=== PATIENT | male | born 1980 | race Caucasian/White ===

== ENCOUNTER 2022-03-04 07:42 | Inpatient (IN) | payer BC ==
[~2022-03-04] VITALS: Wt 95.2 kg
[2022-03-04] MEDS ORDERED: Hair, Skin & N1 EACH PO (08:05)
[2022-03-04 08:40] LABS: BASOPHILS ABSOLUTE AUTO 0.02 K/mm3 (0.00-0.23); BASOPHILS PERCENT AUTO 0 % (0-2); EOSINOPHILS ABSOLUTE AUTO 0.02 K/mm3 (0.00-0.68); EOSINOPHILS PERCENT AUTO 0 % (0-6); Hematocrit 42.9 % (37.0-53.0); Hemoglobin 14.3 g/dL (13.5-17.5); IMMATURE GRAN ABSOLUTE AUTO 0.03 K/mm3 (0.00-0.10); IMMATURE GRAN PERCENT AUTO 0 % (0-1); LYMPHOCYTES ABSOLUTE AUTO 1.89 K/mm3 (0.84-5.20); LYMPHOCYTES PERCENT AUTO 19 % (21-46); MONOCYTES ABSOLUTE AUTO 0.72 K/mm3 (0.16-1.47); MONOCYTES PERCENT AUTO 7 % (4-13); Mean Corpuscular HGB 31.1 pg (26.0-34.0); Mean Corpuscular HGB Conc 33.3 g/dL (31.5-36.5); Mean Corpuscular Volume 93 fL (80-100); Mean Platelet Volume 9.5 fL (9.1-12.4); NEUTROPHILS ABSOLUTE AUTO 7.49 K/mm3 (1.96-9.15); NEUTROPHILS PERCENT AUTO 74 % (41-73); Platelet Count 259 K/mm3 (150-400); RDW Coefficient Variation 12.6 % (11.7-14.2); White Blood Cell Count 10.17 K/mm3 (4.00-11.30)
[2022-03-04 08:45] LABS: Alanine Aminotransfer (ALT/SGP 49 U/L (12-78); Albumin/Globulin Ratio 1.1 (0.8-1.8); Alk Phos 62 U/L (50-136); Anion Gap 4 mmol/L (6-16); Aspartate Aminotrans (AST/SGOT 15 U/L (12-37); Bilirubin, Total 0.7 mg/dL (0.1-1.0); Blood Urea Nitrogen 16 mg/dL (8-24); Bun/Creatinine Ratio 12.7 (12.0-20.0); CO2, Blood 30 mmol/L (21-32); Calcium, Blood 9.3 mg/dL (8.5-10.1); Chloride, Blood 105 mmol/L (98-108); Creatinine, Blood 1.26 mg/dL (0.60-1.20); Globulin, Blood 3.5 g/dL (2.2-4.0); Glomerular Filtration Rate >60 (60-); Glucose, Blood 117 mg/dL (70-99); Potassium, Blood 4.1 mmol/L (3.5-5.5); Sodium, Blood 139 mmol/L (136-145); Total Protein, Blood 7.5 g/dL (6.4-8.2)
--- NOTE | 2022-03-04 11:22 | NUR ---
1100 History, Chart, Medications and Allergies reviewed before start of procedure. Patient confirms NPO status and agrees with scheduled surgery. CONTACT LENSES WERE REMOVED BY PATIENT AND GIVEN TO PT .
--- NOTE | 2022-03-04 13:52 | NUR ---
03/04/22 1352 Mary Lou Jacques LATE ENTRY NO PREOP ANTIBIOTICS ORDERED PER PATIENT RECEIVED ANTIBIOTICS PRIOR TO ARRIVING IN OR AT 0950.
--- NOTE | 2022-03-04 18:57 | NUR ---
SHIFT SUMMARY PT TO ROOM AT APPROX 1330. PER REPORT, PT HAD BEEN HYPOTENSIVE DURING POST OPERATIVE CARE AND HAD RECEIVED A TOTAL OF 2L OF LACTATED RINGERS. PT HAS BEEN DECLINING PAIN MEDICATION THROUGHOUT THE DURATION OF THIS SHIFT. PT'S ANTIBIOTICS GIVEN ORDERED. PT WAS ATTEMPTING TO EAT FOOD AT DINNER TIME BUT REPORTED LITTLE APPETITE. PT RESTING PEACEFULLY OTHERWISE.
--- NOTE | 2022-03-05 03:38 | NUR ---
SHIFT SUMMARY PT IS POD# O FOR APPENDECTOMY. HE HAS THREE ABD LAPRASCOPIC INCISIONS, COVERED WITH GAUZE AND TAPE. NO DRAINAGE NOTED ON DRESSING. HE HAS MODERATE ABD DISTENTION, REPORTS BURPING AND FEELING BLOATED. ROOM AIR. HE REQUESTED TO HAVE UNINTERRUPTED REST, AND TO CALL FOR PAIN MEDS. RN EDUCATED THAT ONE OF THE DISCHARGE GOALS IS PAIN THAT IS MANAGED BY ORAL MEDICATIONS. PT HESISTANT TO TAKE NORCO. RN ENCOURAGED PT TO TRY NORCO TO HELP PROGRESS TO DISCHARGE GOALS. VOIDING, AMBULATING TO BATHROOM WITH SBA. SCD'S IN PLACE. ROOM AIR. TOLERATING PO INTAKE, ALTHOUGH REPORTS HE DOESN'T HAVE MUCH OF AN APPETITE.
[2022-03-05 04:17] LABS: BASOPHILS ABSOLUTE AUTO 0.01 K/mm3 (0.00-0.23); BASOPHILS PERCENT AUTO 0 % (0-2); EOSINOPHILS PERCENT AUTO 0 % (0-6); Hematocrit 35.7 % (37.0-53.0); Hemoglobin 11.9 g/dL (13.5-17.5); IMMATURE GRAN ABSOLUTE AUTO 0.05 K/mm3 (0.00-0.10); IMMATURE GRAN PERCENT AUTO 1 % (0-1); LYMPHOCYTES PERCENT AUTO 10 % (21-46); MONOCYTES PERCENT AUTO 6 % (4-13); Mean Corpuscular HGB Conc 33.3 g/dL (31.5-36.5); Mean Corpuscular Volume 93 fL (80-100); Mean Platelet Volume 9.4 fL (9.1-12.4); NEUTROPHILS ABSOLUTE AUTO 9.02 K/mm3 (1.96-9.15); NEUTROPHILS PERCENT AUTO 84 % (41-73); Platelet Count 199 K/mm3 (150-400); RDW Coefficient Variation 12.8 % (11.7-14.2); RDW Standard Deviation 43.4 fL (35.1-46.3); Red Blood Cell Count 3.84 M/mm3 (4.30-5.90); White Blood Cell Count 10.78 K/mm3 (4.00-11.30)
[2022-03-05 04:50] LABS: Anion Gap 5 mmol/L (6-16); Blood Urea Nitrogen 16 mg/dL (8-24); Bun/Creatinine Ratio 16.3 (12.0-20.0); CO2, Blood 27 mmol/L (21-32); Calcium, Blood 8.5 mg/dL (8.5-10.1); Chloride, Blood 107 mmol/L (98-108); Creatinine, Blood 0.98 mg/dL (0.60-1.20); Glomerular Filtration Rate >60 (60-); Glucose, Blood 137 mg/dL (70-99); Potassium, Blood 4.2 mmol/L (3.5-5.5); Sodium, Blood 139 mmol/L (136-145)
[2022-03-05] MEDS ORDERED: HYDR1TAB94 PO (08:34)
[2022-03-05] MEDS ORDERED: AMOCLA875 PO (08:35)
--- NOTE | 2022-03-05 10:30 | NUR ---
SHIFT SUMMARY PT LEFT FLOOR TO GO HOME WITH , WITH ALL PERSONAL PROPERTY, AND DC INSTRUCTIONS. DC INS PROVIDED, PT REP UNDERSTANDING THOSE INSTRUCTIONS. IV DC'D.
== END 2022-03-05 10:30 | disposition home or self-care (01) | DRG 340 ==
LOC: ER 07:42 → SURS 07:43
PROVIDERS: Family Medicine; Physician Assistant; ADMIT Surgery
PROC: 0DTJ4ZZ Resection of Appendix, Percutaneous Endoscopic Approach (ICD-10-PCS; principal; 2022-03-04 11:00)
DX: K35.32 Acute appendicitis with perforation, localized peritonitis, and gangrene, without abscess (principal); Z79.899 Other long term (current) drug therapy; Z98.890 Other specified postprocedural states
CPT/HCPCS: 36415; 74176; 80048; 80053; 85025; 88304; 96374; 96375; 99285-25; A9270; J0694; J1100; J1170; J1885; J2250; J2405; J2704; J2710; J3010; J7030; J7040; J7042; J7120

== ENCOUNTER 2024-07-07 20:36 | Emergency (ER) | payer BC ==
[~2024-07-07] VITALS: Ht 182.9 cm; Wt 97.5 kg
[~2024-07-07 20:36] MED LIST: AMOCLA875 PO; HYDR1TAB94 PO; Hair, Skin & N1 EACH PO
[2024-07-07 20:38] VITALS: BP 159/104
[2024-07-07] MEDS ORDERED: Ketorolac Tromethamine 30mg Vial IM ONE (20:50)
== END 2024-07-07 21:15 | disposition home or self-care (01) ==
LOC: ER 20:36
DX: S60.212A Contusion of left wrist, initial encounter (principal); W11.XXXA Fall on and from ladder, initial encounter
CPT/HCPCS: 29105; 73110; 96372-59; 99283-25; J1885